=== PATIENT | male | born 1955 | race Caucasian/White ===

== ENCOUNTER 2018-06-23 13:30 | Emergency (ER) | payer OTHER ==
[2018-06-23] MEDS ORDERED: Proparacaine 0.5% Ophth Soln 15 ML Bottle EYEBOTH ONE (13:57)
--- NOTE | 2018-06-23 14:21 | EDM.PDOC ---
ED HPI GENERAL MEDICAL PROBLEM - General Chief Complaint: Eye Problems Stated Complaint: OBJECT IN LT EYE Time Seen by Provider: 06/23/18 14:08 Source of Information: Reports: Patient History Limitations: Reports: No Limitations - History of Present Illness INITIAL COMMENTS - FREE TEXT/NARRATIVE: HISTORY AND PHYSICAL: History of present illness: Patient is a 62-year-old male here with complaint of something in his eye. He states he was leaf blowing yesterday and felt something get in his eye. He flushed his eye and used some drops but still feels like there is something in it. He states it is painful but denies any visual disturbances, fevers, chills, headache, chest pain, shortness of breath. Review of systems: As per history of present illness and below otherwise all systems reviewed and negative. Past medical history: As per history of present illness and as reviewed below otherwise noncontributory. Surgical history: As per history of present illness and as reviewed below otherwise noncontributory. Social history: No reported history of drug or alcohol abuse. Family history: As per history of present illness and as reviewed below otherwise noncontributory. Physical exam: General: Patient sitting comfortably in no acute distress and nontoxic appearing HEENT: There is a tiny rust ring to the cornea on the left eye on the lateral aspect of the iris. Atraumatic, normocephalic, pupils reactive, negative for conjunctival pallor or scleral icterus, mucous membranes moist, throat clear, neck supple, nontender, trachea midline. No meningeal signs. Lungs: Clear to auscultation, breath sounds equal bilaterally, chest nontender. Heart: S1S2, regular, negative for clicks, rubs, or overt murmur. Abdomen: Soft, nondistended, nontender. Negative for masses or hepatosplenomegaly. Negative for costovertebral tenderness. Pelvis: Stable nontender. Genitourinary: Deferred. Rectal: Deferred. Extremities: Atraumatic, negative for cords or calf pain. Neurovascular unremarkable. Neuro: Awake, alert, oriented. Cranial nerves II through XII unremarkable. Cerebellum unremarkable. Motor and sensory unremarkable throughout. Exam nonfocal. Notes: Dr. Vaca performed slit lamp on patient. Diagnostics: Slit lamp exam Therapeutics: Proparocaine ophthalmic Prescriptions: Poly-trim Impression: Corneal foreign body Plan: 1. Use drops as directed 2. Follow up with ophthalmology 3. Return to ED as needed as discussed Definitive disposition and diagnosis as appropriate pending reevaluation and review of above. Left Eye Pain Score (Numeric/FACES): 3 - Related Data Allergies Allergy/AdvReac Type Severity Reaction Status Date / Time No Known Allergies Allergy Verified 06/23/18 13:55 Home Meds: Home Meds Polymyxin B/Trimethoprim [PolyTrim Ophth Soln] 1 drop OP Q3H #1 bottle 06/23/18 [Rx] Past Medical History HEENT History: Reports: None Respiratory History: Reports: None Gastrointestinal History: Reports: None Genitourinary History: Reports: None Musculoskeletal History: Reports: None Neurological History: Reports: None Psychiatric History: Reports: None Endocrine/Metabolic History: Reports: None Dermatologic History: Reports: None - Infectious Disease History Infectious Disease History: Reports: None - Past Surgical History Cardiovascular Surgical History: Reports: Other (See Below) Other Cardiovascular Surgeries/Procedures: Patient states he had "open heart surgery" in April of 2018. Social & Family History - Family History Family Medical History: Noncontributory - Tobacco Use Smoking Status *Q: Never Smoker - Caffeine Use Caffeine Use: Reports: Coffee - Recreational Drug Use Recreational Drug Use: No ED ROS GENERAL - Review of Systems Review Of Systems: ROS reveals no pertinent complaints other than HPI. ED EXAM GENERAL W FULL EYE - Physical Exam Exam: See Below (see dictation) Course - Vital Signs Last Recorded V/S: Last Vital Signs Temp 36.6 C 06/23/18 13:52 Pulse 80 06/23/18 13:52 Resp 16 06/23/18 13:52 BP 147/90 H 06/23/18 13:52 Pulse Ox 95 06/23/18 13:52 - Orders/Labs/Meds Meds: Medications Discontinued Medications Generic Name Dose Route Start Last Admin Trade Name Freq PRN Reason Stop Dose Admin Proparacaine HCl 1 ml 06/23/18 13:57 Proparacaine 0.5% Ophth Soln EYEBOTH 06/23/18 13:58 ONETIME ONE Departure - Departure Time of Disposition: 14:21 Disposition: Admitted As Inpatient 66 Condition: Good Clinical Impression: Corneal foreign body - Discharge Information Prescriptions: Polymyxin B/Trimethoprim [PolyTrim Ophth Soln] 1 drop OP Q3H #1 bottle Referrals: Corey Villeda MD [Primary Care Provider] - Additional Instructions: The following information is given to patients seen in the emergency department who are being discharged to home. This information is to outline your options for follow-up care. We provide all patients seen in our emergency department with a follow-up referral. The need for follow-up, as well as the timing and circumstances, are variable depending upon the specifics of your emergency department visit. If you don't have a primary care physician on staff, we will provide you with a referral. We always advise you to contact your personal physician following an emergency department visit to inform them of the circumstance of the visit and for follow-up with them and/or the need for any referrals to a consulting specialist. The emergency department will also refer you to a specialist when appropriate. This referral assures that you have the opportunity for follow-up care with a specialist. All of these measure are taken in an effort to provide you with optimal care, which includes your follow-up. Under all circumstances we always encourage you to contact your private physician who remains a resource for coordinating your care. When calling for follow-up care, please make the office aware that this follow-up is from your recent emergency room visit. If for any reason you are refused follow-up, please contact the [facility] Emergency Department at and asked to speak to the emergency department charge nurse. [facility] [address] [place] [address] 1. Use drops as directed 2. Follow up with ophthalmology 3. Return to ED as needed as discussed
== END 2018-06-23 14:45 | disposition home or self-care (01) ==
LOC: MW.ED 13:30
DX: T15.02XA Foreign body in cornea, left eye, initial encounter (principal)
CPT/HCPCS: 99283

== ENCOUNTER 2019-06-13 16:00 | Emergency (ER) | payer OTHER ==
[2019-06-13] MEDS ORDERED: Ketorolac 60 MG/2 ML SDV IM ONE (16:16)
--- NOTE | 2019-06-13 16:17 | EDM.PDOC ---
ED HPI GENERAL MEDICAL PROBLEM - General Chief Complaint: Neck Problem Stated Complaint: NECK AND RIGHT SHOULDER PAIN Time Seen by Provider: 06/13/19 16:01 Source of Information: Reports: Patient History Limitations: Reports: No Limitations - History of Present Illness INITIAL COMMENTS - FREE TEXT/NARRATIVE: HISTORY AND PHYSICAL: History of present illness: Patient is a 63-year-old male who presents to the emergency room today with complaints of neck muscular pain that radiates down into the right shoulder. States approximately 2-3 weeks ago he was waiting to attend a volleyball game and was "taking a nap" in his truck. He had been slouched over onto the center console. When he got out of his truck he had noticed some neck stiffness. Over the past few weeks he has had increased stiffness when turning his head side to side. Pain is to the right lateral neck and goes down the sternocleidal mastoid into the posterior shoulder. He has no injury, trauma or falls associated with this. Denies any headache, change in vision, dizziness. Denies any bony tenderness or difficulty with range of motion. Patient does have a history of chronic back pain and did see a provider in [place]. He did mention that he had this muscular neck pain to that provider who has prescribed him outpatient physical therapy. He is supposed to start dry needling and physical therapy next week. Currently not taking any over-the- counter medications. Review of systems: As per history of present illness and below otherwise all systems reviewed and negative. Past medical history: As per history of present illness and as reviewed below otherwise noncontributory. Surgical history: As per history of present illness and as reviewed below otherwise noncontributory. Social history: See social history for further information Family history: As per history of present illness and as reviewed below otherwise noncontributory. Physical exam: General: Well-developed and well-nourished 63-year-old male. Alert and oriented. Nontoxic appearing and in no acute distress. Vital signs are stable and have been reviewed by me. HEENT: Atraumatic, normocephalic, pupils equal and reactive bilaterally, negative for conjunctival pallor or scleral icterus, mucous membranes moist, TMs normal bilaterally, throat clear, neck supple, nontender, trachea midline. No drooling or trismus noted. No meningeal signs. No hot potato voice noted. Lungs: Clear to auscultation, breath sounds equal bilaterally, chest nontender. Heart: S1S2, regular rate and rhythm without overt murmur Abdomen: Soft, nondistended, nontender. Negative for masses or hepatosplenomegaly. Negative for costovertebral tenderness. Pelvis: Stable nontender. C-spine/Back: No pinpoint vertebral tenderness upon palpation. No crepitus, step -offs or obvious deformities. Patient is ambulatory into the emergency room without difficulty or deficit. Able to rock back on heels and walk on toes. Denies any urinary or fecal incontinence. Denies any numbness, tingling or saddle paresthesia. Patient does have muscular tenderness to the right lateral neck going into the trapezius muscle. Limited range of motion when turning his head chin to shoulder bilaterally. Some muscular pulling sensation on the right when chin to chest and straight up in the air. Skin: Intact, warm, dry. No lesions or rashes noted. Extremities: Atraumatic, moves all extremities per self without difficulty or deficits, negative for cords or calf pain. Neurovascular unremarkable. Neuro: Awake, alert, oriented. Cranial nerves II through XII unremarkable. Cerebellum unremarkable. Motor and sensory unremarkable throughout. Exam nonfocal. Notes: We discussed doing an x-ray. Patient has no injury associated with this pain and he does not have any neurological problems. The physical exam shows sits muscular in nature. Medication education was reviewed. He states he does have physical therapy next week and does plan on seeing the provider in [place] for follow-up. Supportive care measures were reviewed and discussed. Voices understanding and is agreeable to plan of care. Denies any further questions or concerns at this time. Diagnostics: Declines Therapeutics: Norflex Toradol Prescription: Flexeril Diclofenac Medrol Dosepak Impression: Muscular Neck Pain Plan: 1. When resting please lay on a flat firm surface. Limit your immobility to prevent muscle stiffness. Get up to ambulate/move around/gentle stretching multiple times throughout the day. May alternate heat and ice to the painful areas 2. Tylenol as needed for back pain. Otherwise take the prescribed Flexeril and diclofenac as directed. Diclofenac is an anti-inflammatory so do not take any additional NSAIDs with this medication, such as ibuprofen or Aleve. Flexeril as a muscle relaxant, this medication may cause drowsiness a do not take it will driving her needing to be functioning outside of the house. 3. Please follow-up with your primary care provider as we discussed. Return to the ED as needed and as discussed. Definitive disposition and diagnosis as appropriate pending reevaluation and review of above. Right Neck Pain Score (Numeric/FACES): 8 - Related Data Allergies Allergy/AdvReac Type Severity Reaction Status Date / Time No Known Allergies Allergy Verified 06/13/19 16:05 Home Meds: Home Meds Cyclobenzaprine [Flexeril] 10 mg PO TID PRN #21 tab 06/13/19 [Rx] Diclofenac Sodium [Voltaren] 75 mg PO BIDMEALS PRN #30 tab.cr 06/13/19 [Rx] methylPREDNISolone [Medrol] 1 dose PO DAILY 6 Days #1 dospk 06/13/19 [Rx] Past Medical History HEENT History: Reports: None Respiratory History: Reports: None Gastrointestinal History: Reports: None Genitourinary History: Reports: None Musculoskeletal History: Reports: None Neurological History: Reports: None Psychiatric History: Reports: None Endocrine/Metabolic History: Reports: None Dermatologic History: Reports: None - Infectious Disease History Infectious Disease History: Reports: Chicken Pox, Measles, Mumps - Past Surgical History Cardiovascular Surgical History: Reports: Other (See Below) Other Cardiovascular Surgeries/Procedures: Patient states he had "open heart surgery" in April of 2018. Social & Family History - Family History Family Medical History: Noncontributory - Tobacco Use Smoking Status *Q: Former Smoker Years of Tobacco use: 40 Packs/Tins Daily: 1 Used Tobacco, but Quit: Yes Month/Year Tobacco Last Used: 2 yr - Caffeine Use Caffeine Use: Reports: Coffee - Recreational Drug Use Recreational Drug Use: No ED ROS GENERAL - Review of Systems Review Of Systems: ROS reveals no pertinent complaints other than HPI. ED EXAM, UPPER BACK/NECK PAIN - Physical Exam Exam: See Below (See dictation) Course - Vital Signs Last Recorded V/S: Last Vital Signs Temp 97.2 F 06/13/19 16:06 Pulse 55 L 06/13/19 16:06 Resp 16 06/13/19 16:06 BP 156/77 H 06/13/19 16:06 Pulse Ox 93 L 06/13/19 16:06 - Orders/Labs/Meds Meds: Medications Discontinued Medications Generic Name Dose Route Start Last Admin Trade Name Freq PRN Reason Stop Dose Admin Ketorolac Tromethamine 60 mg 06/13/19 16:16 Toradol IM 06/13/19 16:17 ONETIME ONE Orphenadrine Citrate 60 mg 06/13/19 16:17 06/13/19 16:42 Norflex IM 06/13/19 16:18 60 mg NOW STA Administration Departure - Departure Time of Disposition: 16:18 Disposition: Home, Self-Care 01 Clinical Impression: Neck muscle strain Qualifiers: Encounter type: initial encounter Qualified Code(s): S16.1XXA - Strain of muscle, fascia and tendon at neck level, initial encounter - Discharge Information Prescriptions: Cyclobenzaprine [Flexeril] 10 mg PO TID PRN #21 tab PRN Reason: Muscle Spasm Diclofenac Sodium [Voltaren] 75 mg PO BIDMEALS PRN #30 tab.cr PRN Reason: Pain methylPREDNISolone [Medrol] 1 dose PO DAILY 6 Days #1 dospk Instructions: Muscle Cramps and Spasms, [id number] Referrals: Corey Villeda MD [Primary Care Provider] - Forms: ED Department Discharge Additional Instructions: The following information is given to patients seen in the emergency department who are being discharged to home. This information is to outline your options for follow-up care. We provide all patients seen in our emergency department with a follow-up referral. The need for follow-up, as well as the timing and circumstances, are variable depending upon the specifics of your emergency department visit. If you don't have a primary care physician on staff, we will provide you with a referral. We always advise you to contact your personal physician following an emergency department visit to inform them of the circumstance of the visit and for follow-up with them and/or the need for any referrals to a consulting specialist. The emergency department will also refer you to a specialist when appropriate. This referral assures that you have the opportunity for follow-up care with a specialist. All of these measure are taken in an effort to provide you with optimal care, which includes your follow-up. Under all circumstances we always encourage you to contact your private physician who remains a resource for coordinating your care. When calling for follow-up care, please make the office aware that this follow-up is from your recent emergency room visit. If for any reason you are refused follow-up, please contact the Emergency Department at and asked to speak to the emergency department charge nurse. Primary Care [address], [place] [address] [facility] [address] [place] [id number] 1. Gentle stretching multiple times throughout the day. Apply gentle heat to the space. 2. Tylenol as needed for back pain. Otherwise take the prescribed Flexeril and diclofenac as directed. Diclofenac is an anti-inflammatory so do not take any additional NSAIDs with this medication, such as ibuprofen or Aleve. Flexeril as a muscle relaxant, this medication may cause drowsiness a do not take it will driving her needing to be functioning outside of the house. 3. Please follow-up with your primary care provider as we discussed. Return to the ED as needed and as discussed.
== END 2019-06-13 17:23 | disposition home or self-care (01) ==
LOC: MW.ED 16:00
DX: S16.1XXA Strain of muscle, fascia and tendon at neck level, initial encounter (principal); Z87.891 Personal history of nicotine dependence; X50.9XXA Other and unspecified overexertion or strenuous movements or postures, initial encounter; Y93.84 Activity, sleeping
CPT/HCPCS: 96372; 99283; J1885; J2360

== ENCOUNTER 2019-12-08 15:18 | Emergency (ER) | payer OTHER ==
[2019-12-08] MEDS ORDERED: Bupivacaine 0.5% 10 ML SDV INJECT ONE (15:45)
--- NOTE | 2019-12-08 15:50 | EDM.PDOC ---
ED HPI GENERAL MEDICAL PROBLEM - General Chief Complaint: Laceration Stated Complaint: CUT TO FINGER Time Seen by Provider: 12/08/19 15:25 Source of Information: Reports: Patient History Limitations: Reports: No Limitations - History of Present Illness INITIAL COMMENTS - FREE TEXT/NARRATIVE: HISTORY AND PHYSICAL: History of present illness: Patient is a 64-year-old male who presents to the ED today with concern of laceration to his left hand ring finger that occurred just prior to arrival to the ED. Patient states he is up-to-date on his tetanus vaccine. Patient states he was trying to open a box with a knife when it slipped and cut his finger. Patient states he wrapped it up and came immediately to the ED. Patient denies fever, chills, chest pain, shortness of breath, or cough. Denies headache, neck stiff ness, change in vision, syncope, or near syncope. Denies nausea, vomiting, abdominal pain, diarrhea, constipation, or dysuria. Has not noted any blood in urine or stool. Patient has been eating and drinking appropriately. Review of systems: As per history of present illness and below otherwise all systems reviewed and negative. Past medical history: As per history of present illness and as reviewed below otherwise noncontributory. Surgical history: As per history of present illness and as reviewed below otherwise noncontributory. Social history: See social history for further information Family history: As per history of present illness and as reviewed below otherwise noncontributory. Physical exam: General: Patient is alert, oriented, and in no acute distress. Patient sitting comfortably on exam table. HEENT: Atraumatic, normocephalic, pupils equal and reactive bilaterally, negative for conjunctival pallor or scleral icterus, mucous membranes moist, TMs normal bilaterally, throat clear, neck supple, nontender, trachea midline. No drooling or trismus noted. No meningeal signs. No hot potato voice noted. Lungs: Clear to auscultation, breath sounds equal bilaterally, chest nontender. Heart: S1S2, regular rate and rhythm without overt murmur Abdomen: Soft, nondistended, nontender. Negative for masses or hepatosplenomegaly. Negative for costovertebral tenderness. Pelvis: Stable nontender. Genitourinary: Deferred. Rectal: Deferred. Skin: The extremities. Otherwise, intact, warm, dry. No lesions or rashes noted. Extremities: There is a 2cm subcutaneous laceration over the distal fourth digit of the left hand with mild bleeding. Otherwise, atraumatic, negative for cords or calf pain. Neurovascular unremarkable. Neuro: Awake, alert, oriented. Cranial nerves II through XII unremarkable. Cerebellum unremarkable. Motor and sensory unremarkable throughout. Exam nonfocal. Notes: Discussed importance for follow-up with primary care provider. Voices understanding and is agreeable to plan of care. Denies any further questions or concerns at this time. Diagnostics: XR of digit offered but patient declines Therapeutics: Sutures, lidocaine, bupivacaine, sterile dressing placed by nursing staff Prescription: None Impression: Finger laceration, 4th digit, left Plan: 1. Keep the area clean and dry. Continue to monitor for signs of infection as discussed. Sutures to be removed in 7-10 days. 2. Tylenol and/or ibuprofen as directed and as needed for pain management and discomfort. 3. Please follow-up with your primary care provider as discussed. Return to the ED as needed and as discussed. Definitive disposition and diagnosis as appropriate pending reevaluation and review of above. - Related Data Allergies Allergy/AdvReac Type Severity Reaction Status Date / Time No Known Allergies Allergy Verified 12/08/19 15:27 Home Meds: Home Meds Gemfibrozil [Lopid] 600 mg PO DAILY 12/08/19 [History] Metoprolol Tartrate 25 mg PO DAILY 12/08/19 [History] atorvaSTATin [Lipitor] 80 mg PO DAILY 12/08/19 [History] Past Medical History HEENT History: Reports: None Respiratory History: Reports: None Gastrointestinal History: Reports: None Genitourinary History: Reports: None Musculoskeletal History: Reports: None Neurological History: Reports: None Psychiatric History: Reports: None Endocrine/Metabolic History: Reports: None Dermatologic History: Reports: None - Infectious Disease History Infectious Disease History: Reports: Measles - Past Surgical History Cardiovascular Surgical History: Reports: Other (See Below) Other Cardiovascular Surgeries/Procedures: Patient states he had "open heart surgery" in April of 2018. GI Surgical History: Reports: Cholecystectomy Musculoskeletal Surgical History: Reports: Shoulder Surgery Social & Family History - Family History Family Medical History: Noncontributory - Tobacco Use Smoking Status *Q: Former Smoker Used Tobacco, but Quit: Yes Month/Year Tobacco Last Used: 2017 - Caffeine Use Caffeine Use: Reports: Coffee - Recreational Drug Use Recreational Drug Use: No ED ROS GENERAL - Review of Systems Review Of Systems: Comprehensive ROS is negative, except as noted in HPI. ED EXAM, SKIN/RASH Exam: See Below (see dictation) ED SKIN PROCEDURES - Laceration/Wound Repair Left Distal Digit - 4th (Ring) Appearance: Subcutaneous, Linear, Mildly Contaminated Distal NVT: Neuro & Vascular Intact, No Tendon Injury Anesthetic Type: Digital Local Anesthesia - Lidocaine (Xylocaine): 1% Plain Local Anesthesia - Bupivicaine (Marcaine): 0.5% Plain Local Anesthetic Volume: Other (10cc) Skin Prep: Chlorhexidine (Hibiciens), Providone-Iodine (Betadine), Saline Saline Irrigation (cc's): 100 Exploration/Debridement/Repair: Wound Explored, In a Bloodless Field, Explored to Base, No Foreign Material Found Closed with: Sutures Lac/Wound length In cm: 2 Suture Size: 4-0 # of Sutures: 4 Suture Type: Silk, Interrupted Drain Placement: No Sterile Dressing Applied: Nurse Tetanus Status Addressed: Yes (up to date) Complications: No Course - Vital Signs Last Recorded V/S: Last Vital Signs Temp 97.0 F 12/08/19 15:30 Pulse 62 12/08/19 15:30 Resp 18 12/08/19 15:30 BP 169/99 H 12/08/19 15:30 Pulse Ox 94 L 12/08/19 15:30 - Orders/Labs/Meds Meds: Medications Discontinued Medications Generic Name Dose Route Start Last Admin Trade Name Leonardo PRN Reason Stop Dose Admin Bupivacaine HCl 10 ml 12/08/19 15:45 Sensorcaine-Mpf 0.5% INJECT 12/08/19 15:46 ONETIME ONE Lidocaine HCl 5 ml 12/08/19 15:45 Xylocaine-Mpf 1% INJECT 12/08/19 15:46 ONETIME ONE Departure - Departure Time of Disposition: 16:25 Disposition: Home, Self-Care 01 Clinical Impression: Finger laceration Qualifiers: Encounter type: initial encounter Finger: ring finger Damage to nail status: without damage Foreign body presence: without foreign body Laterality: left Qualified Code(s): S61.215A - Laceration without foreign body of left ring finger without damage to nail, initial encounter - Discharge Information Referrals: Corey Villeda MD [Primary Care Provider] - Forms: ED Department Discharge Additional Instructions: The following information is given to patients seen in the emergency department who are being discharged to home. This information is to outline your options for follow-up care. We provide all patients seen in our emergency department with a follow-up referral. The need for follow-up, as well as the timing and circumstances, are variable depending upon the specifics of your emergency department visit. If you don't have a primary care physician on staff, we will provide you with a referral. We always advise you to contact your personal physician following an emergency department visit to inform them of the circumstance of the visit and for follow-up with them and/or the need for any referrals to a consulting specialist. The emergency department will also refer you to a specialist when appropriate. This referral assures that you have the opportunity for follow-up care with a specialist. All of these measure are taken in an effort to provide you with optimal care, which includes your follow-up. Under all circumstances we always encourage you to contact your private physician who remains a resource for coordinating your care. When calling for follow-up care, please make the office aware that this follow-up is from your recent emergency room visit. If for any reason you are refused follow-up, please contact the [facility] Emergency Department at and asked to speak to the emergency department charge nurse. [facility] [address] [place] [id number] [place] [address] 1. Keep the area clean and dry. Continue to monitor for signs of infection as discussed. Sutures to be removed in 7-10 days. 2. Tylenol and/or ibuprofen as directed and as needed for pain management and discomfort. 3. Please follow-up with your primary care provider as discussed. Return to the ED as needed and as discussed. Sepsis Event Note - Evaluation Sepsis Screening Result: No Definite Risk - Focused Exam Vital Signs: Vital Signs Temp Pulse Resp BP Pulse Ox 12/08/19 15:30 97.0 F 62 18 169/99 H 94 L Date Exam was Performed: 12/08/19 Time Exam was Performed: 16:25
== END 2019-12-08 16:38 | disposition home or self-care (01) ==
LOC: MW.ED 15:18
DX: S61.215A Laceration without foreign body of left ring finger without damage to nail, initial encounter (principal); Z87.891 Personal history of nicotine dependence; Z79.899 Other long term (current) drug therapy; W26.0XXA Contact with knife, initial encounter
CPT/HCPCS: 12001; 99282; J2001; J3490

== ENCOUNTER 2020-06-12 16:31 | Emergency (ER) | payer OTHER ==
[2020-06-12] MEDS ORDERED: Lidocaine 1% PF 2 ML SDV INJECT ONE (18:25)
--- NOTE | 2020-06-12 18:25 | EDM.PDOC ---
ED HPI GENERAL MEDICAL PROBLEM - General Chief Complaint: Laceration Stated Complaint: RT HAND LACERATION Time Seen by Provider: 06/12/20 18:24 Source of Information: Reports: Patient History Limitations: Reports: No Limitations - History of Present Illness INITIAL COMMENTS - FREE TEXT/NARRATIVE: HISTORY AND PHYSICAL: History of present illness: Patient is a 64-year-old male who presents to the emergency room with complaints of a laceration to the right index finger. He states he was working on a roof top of his shop when he started to fall and grabbed onto some supplies resulting in the laceration. He did not fall, hit his head or have any loss of consciousness. He denies any other bodily injury. He offers no systemic complaints. Tetanus is up-to-date. Review of systems: As per history of present illness and below otherwise all systems reviewed and negative. Past medical history: As per history of present illness and as reviewed below otherwise noncontribu tory. Surgical history: As per history of present illness and as reviewed below otherwise noncontributory. Social history: See social history for further information Family history: As per history of present illness and as reviewed below otherwise noncontributory. Physical exam: General: Well developed and well nourished. Alert and orientated x 3. Nontoxic in appearance and in no acute distress. Vital signs are stable and have been reviewed by me. Nursing notes were reviewed. HEENT: Atraumatic, normocephalic, pupils equal and reactive bilaterally, negative for conjunctival pallor or scleral icterus, mucous membranes moist, trachea midline. No drooling or trismus noted. No meningeal signs. No hot potato voice noted. Lungs: Clear to auscultation, breath sounds equal bilaterally, chest nontender. Normal work of breathing, no accessory muscles used. Heart: S1S2, regular rate and rhythm without overt murmur Abdomen: Soft, nondistended, nontender. Skin: 2.5 cm laceration to the right index finger mid palmar surface. Otherwise remaining skin is intact, warm, dry. No lesions or rashes noted. Hematologic: No petechiae or purpra. Mucosa appropriate color and normal nail bed color and refill. Extremities: Moves all extremities per self without difficulty or deficits, good flexion and extension of the fingers. Cap refill less than 3 seconds. Neurovascular unremarkable. Neuro: Awake, alert, oriented. Cranial nerves II through XII unremarkable. Cerebellum unremarkable. Motor and sensory unremarkable throughout. Exam nonfocal. Psychiatric: Mood and affect are appropriate. Normal thought process. Answering questions appropriately. Notes: 1% lidocaine was used to anesthetize the area. Usual and customary procedures were followed for suture placement. #5 interrupted sutures were placed. Bacitracin nonstick dressing was applied. Patient tolerated well. I have spoken with the patient/caregiver and discussed today's findings, in addition to providing specific details for plan of care. The patient is stable for discharge, counseling was provided and we discussed in great detail signs and symptoms that would prompt them to return to the Emergency Department. Medicatio n, follow up and supportive care measures were reviewed and discussed. Voices understanding and is agreeable to plan of care. Denies any further questions or concerns at this time. Diagnostics: None Therapeutics: 1% lidocaine, wound care Prescription: None Impression: Laceration Plan: 1. Keep the area clean and dry. Continue to monitor for signs of infection. Sutures to be removed in 7-10 days. 2. Tylenol and/or ibuprofen as needed for pain management. 3. Please follow-up with your primary care provider in the next 1-2 days. Return to the ED as needed and as discussed. Definitive disposition and diagnosis as appropriate pending reevaluation and review of above. r index finger Pain Score (Numeric/FACES): 1 - Related Data Allergies Allergy/AdvReac Type Severity Reaction Status Date / Time No Known Allergies Allergy Verified 06/12/20 17:49 Home Meds: Home Meds . [Unable to Verify Home Med List] 06/12/20 [History] Past Medical History HEENT History: Reports: None Respiratory History: Reports: None Gastrointestinal History: Reports: None Genitourinary History: Reports: None Musculoskeletal History: Reports: None Neurological History: Reports: None Psychiatric History: Reports: None Endocrine/Metabolic History: Reports: None Dermatologic History: Reports: None - Infectious Disease History Infectious Disease History: Reports: Measles - Past Surgical History Cardiovascular Surgical History: Reports: Other (See Below) Other Cardiovascular Surgeries/Procedures: Patient states he had "open heart surgery" in April of 2018. GI Surgical History: Reports: Cholecystectomy Musculoskeletal Surgical History: Reports: Shoulder Surgery Social & Family History - Family History Family Medical History: Noncontributory - Caffeine Use Caffeine Use: Reports: Coffee ED ROS GENERAL - Review of Systems Review Of Systems: Comprehensive ROS is negative, except as noted in HPI. ED EXAM, SKIN/RASH Exam: See Below (See dictation) Course - Vital Signs Last Recorded V/S: Last Vital Signs Temp 97.3 F 06/12/20 17:43 Pulse 78 06/12/20 17:43 Resp 18 06/12/20 17:43 BP 148/82 H 06/12/20 17:43 Pulse Ox 93 L 06/12/20 17:43 - Orders/Labs/Meds Meds: Medications Discontinued Medications Generic Name Dose Route Start Last Admin Trade Name Leonardo PRN Reason Stop Dose Admin Bacitracin Confirm 06/12/20 18:53 06/12/20 19:01 Bacitracin Oint 1 Gm Administered 06/12/20 18:54 1 dose Dose Administration 1 dose .ROUTE .STK-MED ONE Lidocaine HCl Confirm 06/12/20 18:26 Xylocaine-Mpf 1% Administered 06/12/20 18:27 Dose 2 mls @ as directed .ROUTE .STK-MED ONE Lidocaine HCl 2 ml 06/12/20 18:25 06/12/20 19:01 Xylocaine-Mpf 1% INJECT 06/12/20 18:26 2 ml ONETIME ONE Administration Departure - Departure Time of Disposition: 19:57 Disposition: Home, Self-Care 01 Clinical Impression: Laceration - Discharge Information Instructions: Laceration Care, Adult, [id number] Referrals: Corey Villeda MD [Primary Care Provider] - Forms: ED Department Discharge Additional Instructions: The following information is given to patients seen in the emergency department who are being discharged to home. This information is to outline your options for follow-up care. We provide all patients seen in our emergency department with a follow-up referral. The need for follow-up, as well as the timing and circumstances, are variable depending upon the specifics of your emergency department visit. If you don't have a primary care physician on staff, we will provide you with a referral. We always advise you to contact your personal physician following an emergency department visit to inform them of the circumstance of the visit and for follow-up with them and/or the need for any referrals to a consulting specialist. The emergency department will also refer you to a specialist when appropriate. This referral assures that you have the opportunity for follow-up care with a specialist. All of these measure are taken in an effort to provide you with optimal care, which includes your follow-up. Under all circumstances we always encourage you to contact your private physician who remains a resource for coordinating your care. When calling for follow-up care, please make the office aware that this follow-up is from your recent emergency room visit. If for any reason you are refused follow-up, please contact the [facility] Emergency Department at and asked to speak to the emergency department charge nurse. [facility] [address] [place] [id number] [facility] [address] [place] [id number] Thank you for choosing the [facility] emergency department in [place] for your medical needs today. It was a pleasure caring for you. Today you were seen in the emergency department for laceration 1. Keep the area clean and dry. Continue to monitor for signs of infection. Edwards tures to be removed in 7-10 days. 2. Tylenol and/or ibuprofen as needed for pain management. 3. Please follow-up with your primary care provider in the next 1-2 days. Return to the ED as needed and as discussed. Sepsis Event Note (ED) - Evaluation Sepsis Screening Result: No Definite Risk - Focused Exam Vital Signs: Vital Signs Temp Pulse Resp BP Pulse Ox 06/12/20 17:43 97.3 F 78 18 148/82 H 93 L
[2020-06-12] MEDS ORDERED: Lidocaine 1% 2 ML ONE (18:26)
[2020-06-12] MEDS ORDERED: Bacitracin Oint 1 GM U/D Packet ONE (18:53)
== END 2020-06-12 19:08 | disposition home or self-care (01) ==
LOC: MW.ED 16:31
DX: S61.210A Laceration without foreign body of right index finger without damage to nail, initial encounter (principal); W26.8XXA Contact with other sharp object(s), not elsewhere classified, initial encounter
CPT/HCPCS: 12001; 99282; J2001

== ENCOUNTER 2020-10-08 10:20 | Emergency (ER) | payer OTHER, MEDICARE ==
--- NOTE | 2020-10-08 10:22 | EDM.PDOC ---
ED HPI GENERAL MEDICAL PROBLEM - General Stated Complaint: CUT HAND Time Seen by Provider: 10/08/20 10:21 Source of Information: Reports: Patient History Limitations: Reports: No Limitations - History of Present Illness INITIAL COMMENTS - FREE TEXT/NARRATIVE: HISTORY AND PHYSICAL: History of present illness: Patient is a 65-year-old male who presents to the ED today with concern of right hand laceration that occurred yesterday when he was using a grinder watch parts and caught his hand on the blade. Patient states that he did not plan on coming to the emergency room but his saw the laceration and was concerned so told him to come be evaluated. Patient states that there is a skin piece that was hanging that he had cut off and since then he has had issues with the laceration bleeding since removing the flap. Patient states he is up-to-date on his tetanus vaccine as he had this 3 years ago. Patient denies fever, chills, chest pain, shortness of breath, or cough. Denies headache, neck stiff ness, change in vision, syncope, or near syncope. Denies nausea, vomiting, abdominal pain, diarrhea, constipation, or dysuria. Has not noted any blood in urine or stool. Patient has been eating and drinking appropriately. Review of systems: As per history of present illness and below otherwise all systems reviewed and negative. Past medical history: As per history of present illness and as reviewed below otherwise noncontributory. Surgical history: As per history of present illness and as reviewed below otherwise noncontributory. Social history: See social history for further information Family history: As per history of present illness and as reviewed below otherwise noncontributory. Physical exam: General: Patient is alert, oriented, and in no acute distress. Patient sitting comfortably on exam table. HEENT: Atraumatic, normocephalic, pupils equal and reactive bilaterally, negative for conjunctival pallor or scleral icterus, mucous membranes moist, TMs normal bilaterally, throat clear, neck supple, nontender, trachea midline. No drooling or trismus noted. No meningeal signs. No hot potato voice noted. Lungs: Clear to auscultation, breath sounds equal bilaterally, chest nontender. Heart: S1S2, regular rate and rhythm without overt murmur Abdomen: Soft, nondistended, nontender. Negative for masses or hepatosplenomegaly. Negative for costovertebral tenderness. Pelvis: Stable nontender. Genitourinary: Deferred. Rectal: Deferred. Skin: Intact, warm, dry. No lesions or rashes noted. Extremities: There is a 3cm superficial abrasion of the right dorsum hand with a 0.5cm x 3cm area of missing epidermis of the webspace between the first and second digit with mild trickling of bleeding. Patient does have full range of motion of the digits of the right upper extremity and wrist without deficit. Radial pulses grossly intact of the right upper extremity with capillary refill less than 2 seconds. Otherwise, atraumatic, negative for cords or calf pain. Neurovascular unremarkable. Neuro: Awake, alert, oriented. Cranial nerves II through XII unremarkable. Cerebellum unremarkable. Motor and sensory unremarkable throughout. Exam nonfocal. Notes: Patients O2 on exam is 92%. I compared this to past visits and patient consistently has an O2 documented in this range. Signs and symptoms that would prompt return to the ED thoroughly discussed with patient. Discussed importance for follow-up with a primary care provider. Voices understanding and is agreeable to plan of care. Denies any further questions or concerns at this time. Diagnostics: None Therapeutics: SurgiSeal sterile dressing Prescription: None Impression: Right hand abrasion Plan: 1. Keep the area clean and dry. Continue to monitor for signs of infection as discussed. 2. Tylenol and/or ibuprofen as directed and as needed for pain management and discomfort. 3. Please follow-up with your primary care provider as discussed. Return to the ED as needed and as discussed. Definitive disposition and diagnosis as appropriate pending reevaluation and review of above. - Related Data Allergies Allergy/AdvReac Type Severity Reaction Status Date / Time No Known Allergies Allergy Verified 10/08/20 10:42 Home Meds: Home Meds . [Unable to Verify Home Med List] 06/12/20 [History] Past Medical History HEENT History: Reports: None Respiratory History: Reports: None Gastrointestinal History: Reports: None Genitourinary History: Reports: None Musculoskeletal History: Reports: None Neurological History: Reports: None Psychiatric History: Reports: None Endocrine/Metabolic History: Reports: None Dermatologic History: Reports: None - Infectious Disease History Infectious Disease History: Reports: Measles - Past Surgical History Cardiovascular Surgical History: Reports: Other (See Below) Other Cardiovascular Surgeries/Procedures: Patient states he had "open heart surgery" in April of 2018. GI Surgical History: Reports: Cholecystectomy Musculoskeletal Surgical History: Reports: Shoulder Surgery Social & Family History - Family History Family Medical History: No Pertinent Family History - Caffeine Use Caffeine Use: Reports: Coffee ED ROS GENERAL - Review of Systems Review Of Systems: Comprehensive ROS is negative, except as noted in HPI. ED EXAM, GENERAL - Physical Exam Exam: See Below (see dictation) Course - Vital Signs Last Recorded V/S: Last Vital Signs Temp 97.1 F 10/08/20 10:39 Pulse 62 10/08/20 12:01 Resp 16 10/08/20 10:39 BP 126/83 10/08/20 12:01 Pulse Ox 92 L 10/08/20 12:01 Departure - Departure Time of Disposition: 14:04 Disposition: Home, Self-Care 01 Clinical Impression: Hand abrasion Qualifiers: Encounter type: initial encounter Laterality: right Qualified Code(s): S60.511A - Abrasion of right hand, initial encounter - Discharge Information Instructions: Skin Tear, [id number], Abrasion, [id number] Referrals: Corey Villeda MD [Primary Care Provider] - Forms: ED Department Discharge Additional Instructions: The following information is given to patients seen in the emergency department who are being discharged to home. This information is to outline your options for follow-up care. We provide all patients seen in our emergency department with a follow-up referral. The need for follow-up, as well as the timing and circumstances, are variable depending upon the specifics of your emergency department visit. If you don't have a primary care physician on staff, we will provide you with a referral. We always advise you to contact your personal physician following an emergency department visit to inform them of the circumstance of the visit and for follow-up with them and/or the need for any referrals to a consulting specialist. The emergency department will also refer you to a specialist when appropriate. This referral assures that you have the opportunity for follow-up care with a specialist. All of these measure are taken in an effort to provide you with optimal care, which includes your follow-up. Under all circumstances we always encourage you to contact your private physician who remains a resource for coordinating your care. When calling for follow-up care, please make the office aware that this follow-up is from your recent emergency room visit. If for any reason you are refused follow-up, please contact the [facility] Emergency Department at and asked to speak to the emergency department charge nurse. [facility] [address] [place] [address] [facility] [address] [place] [id number] 1. Keep the area clean and dry. Continue to monitor for signs of infection as discussed. 2. Tylenol and/or ibuprofen as directed and as needed for pain management and discomfort. 3. Please follow-up with your primary care provider as discussed. Return to the ED as needed and as discussed. Sepsis Event Note (ED) - Focused Exam Vital Signs: Vital Signs Temp Pulse Resp BP Pulse Ox 10/08/20 12:01 62 126/83 92 L 10/08/20 10:39 97.1 F 91 16 131/77 91 L
== END 2020-10-08 12:01 | disposition home or self-care (01) ==
LOC: MW.ED 10:20
DX: S60.511A Abrasion of right hand, initial encounter (principal); W26.8XXA Contact with other sharp object(s), not elsewhere classified, initial encounter
CPT/HCPCS: 99282

== ENCOUNTER 2021-02-22 23:35 | Emergency (ER) | payer OTHER, MEDICARE ==
[2021-02-22] MEDS ORDERED: Diphtheria,Pertussis(Acell),Tetanus Vaccine 0.5 ML Syringe IM ONE (23:51)
[2021-02-23] MEDS ORDERED: Cephalexin 500 MG Cap PO ONE (00:25)
[2021-02-23] MEDS ORDERED: Acetaminophen/oxyCODONE 325-5 MG Tab PO ONE (00:28)
--- NOTE | 2021-02-23 00:30 | EDM.PDOC ---
ED HPI GENERAL MEDICAL PROBLEM - General Chief Complaint: General Stated Complaint: HIT FINGER WITH HAMMER Time Seen by Provider: 02/22/21 23:43 - History of Present Illness INITIAL COMMENTS - FREE TEXT/NARRATIVE: History of present illness: The patient smashed his left hand with a hammer. He is right-hand dominant. He was at work on duty at the time. Saphenous afternoon he has enough pain and swelling in the index finger of the left hand that 8 he can tolerate it cannot sleep. [] Review of systems: As per history of present illness and below otherwise all systems reviewed and negative. Past medical history: As per history of present illness and as reviewed below otherwise noncontributory. Surgical history: As per history of present illness and as reviewed below otherwise noncontributory. Social history: No reported history of drug or alcohol abuse. Family history: As per history of present illness and as reviewed below otherwise noncontributory. Physical exam: Constitutional - well developed, well-nourished and in no acute distress HEENT - normocephalic, no evidence of trauma - external nose and mouth normal - no mass in neck and no JVD - mucosae moist EYES - full EOM, PERRL, no icterus - no evidence of inflammation, injection, or drainage Respiratory - no respiratory distress, equal bilateral expansion Musculoskeletal no gross deformity of long bones or joints - no tenderness, swelling or edema Neurologic - Alert and oriented times four - CN II-XII grossly intact - motor sensory and coordination symmetrically normal Psychiatric - appropriate mood and affect with normal thought content Hematologic - No petechiae or purpura - mucosa appropriate color and sclera not pale - normal nail bed color and refill Integument -patient has a subungual hematoma in the left index finger. Its quite tight and swollen with ecchymosis of the DIP distal tip. Sensation is intact in the distal tip. No rash or evidence of trauma - normal turgor Diagnostics: [] Therapeutics: [] Impression: [] Plan: [] Definitive disposition and diagnosis as appropriate pending reevaluation and review of above. Left Finger-Ring Pain Score (Numeric/FACES): 9 - Related Data Allergies Allergy/AdvReac Type Severity Reaction Status Date / Time No Known Allergies Allergy Verified 02/22/21 23:41 Home Meds: Home Meds Acetaminophen/oxyCODONE [Percocet 325-5 MG] 1 - 2 each PO Q4HR PRN #12 tab 02/23/21 [Rx] cephALEXin [Cephalexin] 500 mg PO BID #10 capsule 02/23/21 [Rx] Past Medical History HEENT History: Reports: None Respiratory History: Reports: None Gastrointestinal History: Reports: None Genitourinary History: Reports: None Musculoskeletal History: Reports: None Neurological History: Reports: None Psychiatric History: Reports: None Endocrine/Metabolic History: Reports: None Dermatologic History: Reports: None - Infectious Disease History Infectious Disease History: Reports: Measles - Past Surgical History Cardiovascular Surgical History: Reports: Other (See Below) Other Cardiovascular Surgeries/Procedures: Patient states he had "open heart surgery" in April of 2018. GI Surgical History: Reports: Cholecystectomy Musculoskeletal Surgical History: Reports: Shoulder Surgery Social & Family History - Family History Family Medical History: No Pertinent Family History - Caffeine Use Caffeine Use: Reports: Coffee - Recreational Drug Use Recreational Drug Use: No ED ROS GENERAL - Review of Systems Review Of Systems: Comprehensive ROS is negative, except as noted in HPI. ED EXAM, GENERAL - Physical Exam Exam: See Below Free Text/Narrative:: My physical exam is in the HPI Course - Vital Signs Text/Narrative:: I reviewed the literature because the possibility that I would convert this to an open fracture by doing I pain relief trephination. Literature suggests that his subungual hematoma with a fracture is an open fracture and antibiotics are controversial and not necessarily needed. Because I am doing a trephination this will open fracture to the outside air I chose to give him antibiotics here and follow-up with antibiotics as a prescription. We will also take your pain control and splinting. Last Recorded V/S: Last Vital Signs Temp 36.2 C 02/22/21 23:42 Pulse 55 L 02/22/21 23:42 Resp 17 02/22/21 23:42 BP 121/64 02/22/21 23:42 Pulse Ox 97 02/22/21 23:42 - Orders/Labs/Meds Orders: Active Orders 24 hr Category Date Time Status Vaccines to be Administered [RC] PER UNIT ROUTINE Care 02/22/21 23:51 Active Hand Comp Min 3V Lt [CR] Stat Exams 02/22/21 23:51 Taken Meds: Medications Discontinued Medications Generic Name Dose Route Start Last Admin Trade Name Freq PRN Reason Stop Dose Admin Diphtheria/Tetanus/Acell Pertussis 0.5 ml 02/22/21 23:51 02/23/21 00:10 Diphtheria,Pertussis(Acell),Tetanus Vaccine 0.5 Ml Syringe IM 02/22/21 23:52 Not Given .ONCE ONE Departure - Departure Time of Disposition: 00:50 Disposition: Home, Self-Care 01 Condition: Good Clinical Impression: Subungual hematoma, Open fracture of tuft of distal phalanx of finger - Discharge Information Referrals: Corey Villeda MD [Primary Care Provider] - Chandler Meeks MD [Ordering Only Provider] - Additional Instructions: If there are any signs of infection like red streaking up the finger or fever you should return. Follow-up with Dr. Meeks in [place] or your doctor locally if there are no complications. Dr. Meeks is a hand surgeon. [facility] [place] [phone] [facility] - Primary Care [address] [place] [id number] [place] [address] The following information is given to patients seen in the emergency department who are being discharged to home. This information is to outline your options for follow-up care. We provide all patients seen in our emergency department with a follow-up referral. The need for follow-up, as well as the timing and circumstances, are variable depending upon the specifics of your emergency department visit. If you don't have a primary care physician on staff, we will provide you with a referral. We always advise you to contact your personal physician following an emergency department visit to inform them of the circumstance of the visit and for follow-up with them and/or the need for any referrals to a consulting specialist. The emergency department will also refer you to a specialist when appropriate. This referral assures that you have the opportunity for follow-up care with a specialist. All of these measure are taken in an effort to provide you with optimal care, which includes your follow-up. Under all circumstances we always encourage you to contact your private physician who remains a resource for coordinating your care. When calling for follow-up care, please make the office aware that this follow-up is from your recent emergency room visit. If for any reason you are refused follow-up, please contact the [facility] Emergency Department at and asked to speak to the emergency department charge nurse. Sepsis Event Note (ED) - Evaluation Sepsis Screening Result: No Definite Risk - Focused Exam Vital Signs: Vital Signs Temp Pulse Resp BP Pulse Ox 02/22/21 23:42 36.2 C 55 L 17 121/64 97 - My Orders Last 24 Hours: My Active Orders 02/22/21 23:51 Vaccines to be Administered [RC] PER UNIT ROUTINE Hand Comp Min 3V Lt [CR] Stat - Assessment/Plan Last 24 Hours: My Active Orders 02/22/21 23:51 Vaccines to be Administered [RC] PER UNIT ROUTINE Hand Comp Min 3V Lt [CR] Stat
--- NOTE | 2021-02-23 00:43 | CR ---
For Patients: As a result of the Cures Act, medical imaging exams and procedure reports are released immediately into your electronic medical record. You may view this report before your referring provider. If you have questions, please contact your health care provider. Indication: Smashed finger Technique: Three views of left hand Comparison: None Findings/Impression: Comminuted fracture of the 4th distal phalangeal tuft, consistent with crush injury. No additional fracture identified. No evidence of joint dislocation. Dictated by Kallie Alicea MD @ 02/23/2021 12:42:[address] Kallie Alicea @ Feb 23 2021 12:42AM
== END 2021-02-23 00:48 | disposition home or self-care (01) ==
LOC: MW.ED 23:35
DX: S62.631B Displaced fracture of distal phalanx of left index finger, initial encounter for open fracture (principal); W22.8XXA Striking against or struck by other objects, initial encounter
CPT/HCPCS: 73130; 99283; A9270

== ENCOUNTER 2021-04-24 16:46 | Emergency (ER) | payer OTHER, MEDICARE ==
[2021-04-24] MEDS ORDERED: fentaNYL 50 MCG/ML SDV IVPUSH ONE (17:19)
[2021-04-24] MEDS ORDERED: Sodium Chloride 0.9% 10 ML Syringe FLUSH PRN (17:19)
[2021-04-24] MEDS ORDERED: Sodium Chloride 0.9% 2.5 ML Syringe FLUSH PRN (17:19)
[2021-04-24] MEDS ORDERED: Sodium Chloride 0.9% 1,000 ML IV ONE (17:20)
--- NOTE | 2021-04-24 17:22 | EDM.PDOC ---
<Edison Garcia - Last Filed: 04/24/21 18:54> ED HPI GENERAL MEDICAL PROBLEM - General Chief Complaint: Abdominal Pain Stated Complaint: LT SIDE PAIN Time Seen by Provider: 04/24/21 17:37 - History of Present Illness INITIAL COMMENTS - FREE TEXT/NARRATIVE: History of present illness: [] The patient has pain in the left lower quadrant for 2 weeks. Is fairly severe. Nothing makes it better or worse. His appetite is okay. He is not vomiting. He does not have diarrhea or constipation. His urine flow is normal. He does feel like there is a mass in the left lower quadrant in the site where the pain is. The patient is never had the pain before. He is never had any surgery on this area. He has never had a hernia any kind. The patient does not vomit any blood passing blood or passing blood in his urine. The patient has never had a colonoscopy but does Cologuard home test. He has a grandmother had colon cancer but no other family history of it. Review of systems: As per history of present illness and below otherwise all systems reviewed and negative. Past medical history: As per history of present illness and as reviewed below otherwise noncontributory. Surgical history: As per history of present illness and as reviewed below otherwise noncontributory. Social history: No reported history of drug or alcohol abuse. Family history: As per history of present illness and as reviewed below otherwise noncontributory. Physical exam: Constitutional - well developed, well-nourished and in no acute distress HEENT - normocephalic, no evidence of trauma - external nose and mouth normal - no mass in neck and no JVD - mucosae moist EYES - full EOM, PERRL, no icterus - no evidence of inflammation, injection, or drainage Respiratory - no respiratory distress, equal bilateral expansion, lungs clear to auscultation and no abnormal lung sounds Cardiovascular - Regular Rhythm with S1 and S2 appreciated and no murmur, gallop or rub. GI - abdomen soft without distension or organomegaly - normal bowel sounds - no guard or rebound. Tender left lower quadrant. There is referred tenderness to the left lower quadrant with palpation on the right. No mass appreciated. Musculoskeletal no gross deformity of long bones or joints - no tenderness, swelling or edema Neurologic - Alert and oriented times four - CN II-XII grossly intact - motor sensory and coordination symmetrically normal Psychiatric - appropriate mood and affect with normal thought content Hematologic - No petechiae or purpura - mucosa appropriate color and sclera not pale - normal nail bed color and refill Integument - no rash or evidence of trauma - normal turgor Diagnostics: [] Therapeutics: [] Impression: [] Plan: [] Definitive disposition and diagnosis as appropriate pending reevaluation and review of above. LLQ Pain Score (Numeric/FACES): 5 - Related Data Allergies Allergy/AdvReac Type Severity Reaction Status Date / Time No Known Allergies Allergy Verified 04/24/21 17:37 Home Meds: Home Meds Acetaminophen/HYDROcodone [HYDROcodone-Acetaminophen 5-525 MG *] 1 tab PO Q6H P RN #10 each 04/24/21 [Rx] Empagliflozin [Jardiance] 10 mg PO DAILY 04/24/21 [History] Hydrocodone/Acetaminophen [HYDROcodone-Acetaminophen 5-325 MG] 1 each PO Q6H #10 tab 04/24/21 [Rx] Metoprolol Succinate [Toprol XL] 1.5 tab PO DAILY 04/24/21 [History] Naloxone HCl [Narcan] 4 mg NS ONETIME #1 spray 04/24/21 [Rx] atorvaSTATin [Lipitor] 80 mg PO BEDTIME 04/24/21 [History] gemfibroziL [Gemfibrozil] 300 mg PO BID 04/24/21 [History] traZODone 50 mg PO BEDTIME 04/24/21 [History] Past Medical History HEENT History: Reports: None Respiratory History: Reports: None Gastrointestinal History: Reports: None Genitourinary History: Reports: None Musculoskeletal History: Reports: None Neurological History: Reports: None Psychiatric History: Reports: None Endocrine/Metabolic History: Reports: None Dermatologic History: Reports: None - Infectious Disease History Infectious Disease History: Reports: Measles - Past Surgical History Cardiovascular Surgical History: Reports: Other (See Below) Other Cardiovascular Surgeries/Procedures: Patient states he had "open heart surgery" in April of 2018. GI Surgical History: Reports: Cholecystectomy Musculoskeletal Surgical History: Reports: Shoulder Surgery Social & Family History - Family History Family Medical History: No Pertinent Family History - Caffeine Use Caffeine Use: Reports: Coffee Departure - Departure Disposition: Home, Self-Care 01 Condition: Good Clinical Impression: Abdominal pain, Epiploic appendagitis - Discharge Information Prescriptions: Hydrocodone/Acetaminophen [HYDROcodone-Acetaminophen 5-325 MG] 1 each PO Q6H #10 tab Acetaminophen/HYDROcodone [HYDROcodone-Acetaminophen 5-525 MG *] 1 tab PO Q6H PRN #10 each PRN Reason: Abdominal Pain Naloxone HCl [Narcan] 4 mg NS ONETIME #1 spray Instructions: Abdominal Pain, Adult, [id number] Referrals: Corey Villeda MD [Primary Care Provider] - Forms: ED Department Discharge Additional Instructions: Your imaging today showed some inflamed fat along your colon. We did recommend NSAIDs however given your history this is contraindicated. Therefore I recommend use Tylenol and [place] for pain relief. As discussed this may take some time to improve. If your pain is persistent in approximately 2 weeks I would like you to follow-up with general surgery. If your pain worsens, you start having fever, start having blood in your stool I had like you to return to the emergency department. Pain Medication Schedule: 8am (1000mg Tylenol) 2pm (1000mg Tylenol) 8pm (500mg Tylenol & 1 Tablet of [place]) 2am (500mg Tylenol & 1 Tablet of [place]) Use a stool softener and plenty of liquids to try to clean up and make sure your bowels work regularly to avoid pain that might be caused by constipation. You should have a colonoscopy especially in view of your family history. In [place] the surgeons do her colonoscopy. [facility] - General Surgery Professional Building [address] [place] [address], [address] [place] [address] [facility] - Primary Care [address] [place] [id number] [id number] The following information is given to patients seen in the emergency department who are being discharged to home. This information is to outline your options for follow-up care. We provide all patients seen in our emergency department with a follow-up referral. The need for follow-up, as well as the timing and circumstances, are variable depending upon the specifics of your emergency department visit. If you don't have a primary care physician on staff, we will provide you with a referral. We always advise you to contact your personal physician following an emergency department visit to inform them of the circumstance of the visit and for follow-up with them and/or the need for any referrals to a consulting specialist. The emergency department will also refer you to a specialist when appropriate. This referral assures that you have the opportunity for follow-up care with a specialist. All of these measure are taken in an effort to provide you with optimal care, which includes your follow-up. Under all circumstances we always encourage you to contact your private physician who remains a resource for coordinating your care. When calling for follow-up care, please make the office aware that this follow-up is from your recent emergency room visit. If for any reason you are refused follow-up, please contact the [facility] Emergency Department at and asked to speak to the emergency department charge nurse. <Andrew Prasad - Last Filed: 04/25/21 06:23> ED HPI GENERAL MEDICAL PROBLEM - History of Present Illness INITIAL COMMENTS - FREE TEXT/NARRATIVE: Patient was signed out to me by Dr. Garcia pending CT at 7PM I did reevaluate the patient and patient continues to remain stable. The patient did have pain in the left lower quadrant however without any rebound or guarding. Vitals remained normal. The radiological images were viewed by myself along with reading the report from the radiologist. CT abdomen pelvis reveals intraperitoneal focal fat infarction anterior to the distal descending colon. No evidence of diverticulitis with a small fat- containing umbilical and left inguinal hernia. There is hepatic steatosis. After imaging I did contact general surgeon Dr. Berumen who recommended NSAIDs for pain control and follow-up general surgery clinic if it did not improve. I did discuss results with the patient. At this time I did discuss that given he is not able to take NSAIDs he should use Tylenol and [place] for pain relief. He is to return for any new or worsening symptoms. He was amenable to discharge at this time and had no further questions. DISPOSITION: The patient was discharged home in stable condition. The patient will follow up with general surgery as needed CONDITION: Fair PROCEDURES: None FINAL IMPRESSION(S)/DIAGNOSES: 1. Acute abdominal pain secondary to epiploic appendagitis Andrew Prasad M.D. ED ROS GENERAL - Review of Systems Review Of Systems: See Below ED EXAM, GENERAL - Physical Exam Exam: See Below Course - Vital Signs Last Recorded V/S: Last Vital Signs Temp 36.1 C 04/24/21 19:48 Pulse 66 04/24/21 19:48 Resp 16 04/24/21 19:48 BP 141/85 H 04/24/21 19:48 Pulse Ox 94 L 04/24/21 19:48 - Orders/Labs/Meds Orders: Active Orders 24 hr Category Date Time Status Saline Lock Insert [OM.PC] Stat Oth 04/24/21 17:19 Ordered Labs: Laboratory Tests 04/24/21 04/24/21 04/24/21 Range/Units 17:40 17:40 19:00 WBC 7.56 (4.0-11.0) K/uL RBC 5.11 (4.50-5.90) M/uL Hgb 15.2 (13.0-17.0) g/dL Hct 45.2 (38.0-50.0) % MCV 88.5 (80.0-98.0) fL MCH 29.7 (27.0-32.0) pg MCHC 33.6 (31.0-37.0) g/dL RDW Std Deviation 42.1 (28.0-62.0) fl RDW Coeff of [place] 13 (11.0-15.0) % Plt Count 166 (150-400) K/uL MPV 11.50 (7.40-12.00) fL Neut % (Auto) 62.0 (48.0-80.0) % Lymph % (Auto) 25.3 (16.0-40.0) % [place] % (Auto) 11.0 (0.0-15.0) % Eos % (Auto) 1.3 (0.0-7.0) % Baso % (Auto) 0.4 (0.0-1.5) % Neut # (Auto) 4.7 (1.4-5.7) K/uL Lymph # (Auto) 1.9 (0.6-2.4) K/uL [place] # (Auto) 0.8 (0.0-0.8) K/uL Eos # (Auto) 0.1 (0.0-0.7) K/uL Baso # (Auto) 0.0 (0.0-0.1) K/uL Nucleated RBC % 0.0 /100WBC Nucleated RBCs # 0 K/uL Sodium 139 (136-148) mmol/L Potassium 3.8 (3.5-5.1) mmol/L Chloride 106 (98-107) mmol/L Carbon Dioxide 25.6 (21.0-32.0) mmol/L BUN 23 H (7.0-18.0) mg/dL Creatinine 1.0 (0.8-1.3) mg/dL Est Cr Clr Drug Dosing 76.04 mL/min Estimated GFR (MDRD) > 60.0 ml/min Glucose 97 (74-106) mg/dL Calcium 8.5 (8.5-10.1) mg/dL Total Bilirubin 0.4 (0.2-1.0) mg/dL AST 18 (15-37) IU/L ALT 34 (14-63) IU/L Alkaline Phosphatase 66 (46-116) U/L Total Protein 6.6 (6.4-8.2) g/dL Albumin 3.6 (3.4-5.0) g/dL Globulin 3.0 (2.6-4.0) g/dL Albumin/Globulin Ratio 1.2 (0.9-1.6) Lipase 81 (73-393) U/L Urine Color YELLOW Urine Appearance CLEAR Urine pH 6.0 (5.0-8.0) Ur Specific [place] 1.015 (1.001-1.035) Urine Protein NEGATIVE (NEGATIVE) mg/dL Urine Glucose (UA) >=1000 (NEGATIVE) mg/dL Urine Ketones NEGATIVE (NEGATIVE) mg/dL Urine Occult Blood NEGATIVE (NEGATIVE) Urine Nitrite NEGATIVE (NEGATIVE) Urine Bilirubin NEGATIVE (NEGATIVE) Urine Urobilinogen 0.2 (<2.0) EU/dL Ur Leukocyte Esterase NEGATIVE (NEGATIVE) Meds: Medications Discontinued Medications Generic Name Dose Route Start Last Admin Trade Name Freq PRN Reason Stop Dose Admin Acetaminophen 1,000 mg 04/24/21 19:29 04/24/21 19:46 Acetaminophen 500 Mg Tab PO 04/24/21 19:30 1,000 mg ONETIME ONE Administration Fentanyl 50 mcg 04/24/21 17:19 04/24/21 19:46 Fentanyl 50 Mcg/Ml Sdv IVPUSH 04/24/21 17:20 Not Given ONETIME ONE Sodium Chloride 1,000 mls @ 1,000 mls/hr 04/24/21 17:20 04/24/21 18:15 Normal Saline IV 04/24/21 18:19 1,000 mls/hr .Bolus ONE Administration Iopamidol 100 ml 04/24/21 18:31 04/24/21 18:31 Iopamidol 755 Mg/Ml 500 Ml Multipack Bottle IVPUSH 04/24/21 18:32 100 ml ONETIME ONE Administration Sodium Chloride 10 ml 04/24/21 17:19 Sodium Chloride 0.9% 10 Ml Syringe FLUSH ASDIRECTED PRN Keep Vein Open Sodium Chloride 2.5 ml 04/24/21 17:19 Sodium Chloride 0.9% 2.5 Ml Syringe FLUSH ASDIRECTED PRN Keep Vein Open Departure - Departure Time of Disposition: 20:17 - Discharge Information *PRESCRIPTION DRUG MONITORING PROGRAM REVIEWED*: No *COPY OF PRESCRIPTION DRUG MONITORING REPORT IN PATIENT ASHLEY: No Sepsis Event Note (ED) - Focused Exam Vital Signs: Vital Signs Temp Pulse Resp BP Pulse Ox 04/24/21 19:48 36.1 C 66 16 141/85 H 94 L 04/24/21 19:18 36.1 C 64 16 144/86 H 98
[2021-04-24 18:05] LABS: BLOOD UREA NITROGEN,BUN 23 mg/dL (7.0-18.0); CARBON DIOXIDE,CO2 25.6 mmol/L (21.0-32.0); CHLORIDE,CL 106 mmol/L (98-107); GLUCOSE RANDOM 97 mg/dL (74-106); LIPASE 81 U/L (73-393); POTASSIUM,K 3.8 mmol/L (3.5-5.1); SODIUM,NA 139 mmol/L (136-148)
[2021-04-24] MEDS ORDERED: Iopamidol 755 MG/ML 500 ML Multipack Bottle IVPUSH ONE (18:31)
[2021-04-24] MEDS ORDERED: Acetaminophen 500 MG Tab PO ONE (19:29)
--- NOTE | 2021-04-24 19:32 | CT ---
INDICATION: Left lower quadrant pain with palpable mass TECHNIQUE: CT abdomen and pelvis acquired with 100 cc Isovue 370 IV contrast. COMPARISON: None FINDINGS: Lower chest: Status post median sternotomy. Liver: Hepatic steatosis. Spleen: Unremarkable. Pancreas: Unremarkable. Gallbladder and bile ducts: S/p cholecystectomy. Adrenal glands: Unremarkable. Kidneys: Simple cyst on the right kidney. GI tract: There is a 1.8 x 2.9 x 3.6 cm focal area of fat density with a thin enhancing rim. Central area of hyperdensity within the fat density. Anterior to the distal portion of the descending colon. There is no colonic wall thickening. No extraluminal air or abscess. No diverticulitis. Appendix is normal. Vascular structures: Unremarkable. Lymph nodes: Unremarkable. Miscellaneous: Small fat containing umbilical hernia. Small fat containing left inguinal hernia. No free air or significant free fluid. Pelvic Organs: Unremarkable. Bones: Unremarkable for age. IMPRESSION: Intraperitoneal focal fat infarction anterior to the distal descending colon. Small fat containing umbilical and left inguinal hernias. Hepatic steatosis. Status post cholecystectomy and median sternotomy. Please note that all CT scans at this facility use dose modulation, iterative reconstruction, and/or weight-based dosing when appropriate to reduce radiation dose to as low as reasonably achievable. Dictated by Aure Escalera MD @ 04/24/2021 7:30:[address] Aure Escalera @ Apr 24 2021 7:30PM
== END 2021-04-24 20:40 | disposition home or self-care (01) ==
LOC: MW.ED 16:46
DX: K63.89 Other specified diseases of intestine (principal); Z79.899 Other long term (current) drug therapy
CPT/HCPCS: 36415; 74177; 80053; 81003; 83690; 85025; 99284; A9270; J7030; Q9967

== ENCOUNTER 2023-02-06 09:23 | Emergency (ER) | payer OTHER, MEDICARE ==
[2023-02-06] MEDS ORDERED: Sodium Chloride 0.9% 1,000 ML IV ONE (10:02)
[2023-02-06] MEDS ORDERED: Ondansetron 4 MG/2 ML SDV IVPUSH ONE (10:03)
[2023-02-06] MEDS ORDERED: Morphine 4 MG/ML Syringe IVPUSH ONE (10:03)
[2023-02-06 10:09] LABS: BASOPHILS PERCENT AUTO 0.2 % (0.0-1.5); EOSINOPHILS PERCENT AUTO 0.4 % (0.0-7.0); HEMATOCRIT 48.3 % (38.0-50.0); HEMOGLOBIN 16.4 g/dL (13.0-17.0); LYMPHOCYTES ABSOLUTE AUTO 0.6 K/uL (0.6-2.4); LYMPHOCYTES PERCENT AUTO 11.9 % (16.0-40.0); MEAN CORPUSCULAR HEMOGLOBIN 29.7 pg (27.0-32.0); MEAN CORPUSCULAR VOLUME 87.3 fL (80.0-98.0); MONOCYTES ABSOLUTE AUTO 0.4 K/uL (0.0-0.8); MONOCYTES PERCENT AUTO 8.3 % (0.0-15.0); NEUTROPHILS PERCENT AUTO 79.2 % (48.0-80.0); NRBC ABSOLUTE 0 K/uL; PLATELET COUNT,PLT 147 K/uL (150-400); RED BLOOD CELL COUNT 5.53 M/uL (4.50-5.90); WHITE BLOOD CELL COUNT,WBC 5.03 K/uL (4.0-11.0)
[2023-02-06 10:32] LABS: ALBUMIN 3.4 g/dL (3.4-5.0); BILIRUBIN TOTAL 0.7 mg/dL (0.2-1.0); CALCIUM 8.5 mg/dL (8.5-10.1); CARBON DIOXIDE,CO2 23.6 mmol/L (21.0-32.0); CREATININE 1.2 mg/dL (0.8-1.3); EST CRCL DRUG DOSING (CG) 61.68 mL/min; POTASSIUM,K 3.6 mmol/L (3.5-5.1); PROTEIN TOTAL,TP 6.9 g/dL (6.4-8.2)
[2023-02-06 11:10] LABS: APPEARANCE,URINE CLEAR; BILIRUBIN,URINE NEGATIVE (NEGATIVE); COLOR,URINE YELLOW; GLUCOSE,URINE >=1000 mg/dL (NEGATIVE); KETONES,URINE NEGATIVE (NEGATIVE); LEUKOCYTE ESTERASE,URINE NEGATIVE (NEGATIVE); NITRITE,URINE NEGATIVE (NEGATIVE); OCCULT BLOOD,URINE NEGATIVE (NEGATIVE); PROTEIN,URINE NEGATIVE (NEGATIVE); UROBILINOGEN,URINE 0.2 EU/dL (<2.0)
[2023-02-06] MEDS ORDERED: Aluminum Hydroxide/Magnesium Hydroxide/Simethicone XS Susp 30 ML Cup PO ONE (11:36)
== END 2023-02-06 13:00 | disposition home or self-care (01) ==
LOC: MW.ED 09:23
DX: K42.9 Umbilical hernia without obstruction or gangrene (principal); I10 Essential (primary) hypertension; E11.9 Type 2 diabetes mellitus without complications; Z79.899 Other long term (current) drug therapy; Z90.49 Acquired absence of other specified parts of digestive tract
CPT/HCPCS: 36415; 74176; 80053; 81003; 83690; 85025; 96361; 96374; 96375; 99284; J2270; J2405; J7030

== ENCOUNTER 2023-06-20 06:34 | Day surgery (SDC) | payer OTHER, MEDICARE ==
[~2023-06-20 06:34] MED LIST: Sodium Chloride 0.9% 10 ML Syringe FLUSH PRN; Sodium Chloride 0.9% 2.5 ML Syringe FLUSH PRN; Sodium Chloride 0.9% 20 ML SDV IV PRN; ceFAZolin 2 GM in Sodium Chloride 0.9% 50 ML IV ONE
[2023-06-20] MEDS ORDERED: Lactated Ringers 1,000 ML IV SCH (07:15)
[2023-06-20] MEDS ORDERED: Bupivacaine 0.5% 30 ML SDV ONE ×2 (07:22→07:24)
[2023-06-20] MEDS ORDERED: Ropivacaine 0.5% 5 MG/ML 30 ML SDV ONE (07:23)
[2023-06-20] MEDS ORDERED: Famotidine 20 MG/2 ML SDV ONE (07:23)
[2023-06-20] MEDS ORDERED: fentaNYL 250 MCG/5 ML SDV ONE (07:25)
[2023-06-20] MEDS ORDERED: Rocuronium Bromide 50 MG/5 ML Syringe ONE ×2 (07:25→08:36)
[2023-06-20] MEDS ORDERED: Morphine 10 MG/ML SDV ONE (07:25)
[2023-06-20] MEDS ORDERED: Propofol 200 MG/20 ML SDV ONE (07:25)
[2023-06-20] MEDS ORDERED: Ondansetron 4 MG/2 ML SDV IVPUSH PRN (07:30)
[2023-06-20] MEDS ORDERED: fentaNYL 50 MCG/ML SDV IVPUSH PRN (07:30)
[2023-06-20] MEDS ORDERED: Naloxone 0.4 MG/ML SDV IVPUSH PRN (07:30)
[2023-06-20] MEDS ORDERED: HYDROmorphone 1 MG/ML Syringe IVPUSH PRN (07:30)
[2023-06-20] MEDS ORDERED: Morphine 2 MG/ML SYRINGE IVPUSH PRN (07:30)
[2023-06-20] MEDS ORDERED: Albuterol 0.083% 2.5 MG/3 ML Neb Soln NEB PRN (07:30)
[2023-06-20] MEDS ORDERED: droPERidol 5 MG/2 ML SDV IVPUSH PRN (07:30)
[2023-06-20] MEDS ORDERED: Metoclopramide 10 MG/2 ML SDV IVPUSH PRN (07:30)
[2023-06-20] MEDS ORDERED: Ondansetron 4 MG/2 ML SDV ONE (08:36)
[2023-06-20] MEDS ORDERED: ePHEDrine 50 MG/ML SDV ONE (08:36)
[2023-06-20] MEDS ORDERED: Dexamethasone 4 MG/ML 5 ML MDV ONE (08:36)
[2023-06-20] MEDS ORDERED: Sugammadex Sodium 200 MG/2 ML VIAL ONE (08:36)
== END 2023-06-20 09:58 | disposition home or self-care (01) ==
LOC: MW.SDS 06:34
PROVIDERS: ATTEND Surgery
DX: K42.0 Umbilical hernia with obstruction, without gangrene (principal); K21.9 Gastro-esophageal reflux disease without esophagitis; I10 Essential (primary) hypertension; E78.00 Pure hypercholesterolemia, unspecified; E11.9 Type 2 diabetes mellitus without complications; F17.210 Nicotine dependence, cigarettes, uncomplicated; Z79.82 Long term (current) use of aspirin; Z79.899 Other long term (current) drug therapy; Z88.8 Allergy status to other drugs, medicaments and biological substances
CPT/HCPCS: 49592; 64488; 82947; J1100; J2270; J2405; J2704; J2795; J3010; J3490; J7120; C1781

== ENCOUNTER 2023-08-26 18:05 | Emergency (ER) | payer OTHER, MEDICARE ==
[2023-08-26 19:00] LABS: CORONAVIRUS COVID-19 NAA POSITIVE (NEGATIVE); INFLUENZA A NAA NEGATIVE (NEGATIVE); INFLUENZA B NAA NEGATIVE (NEGATIVE); RESPIRATORY SYNCYTIAL VIR NAA NEGATIVE (NEGATIVE)
[2023-08-26] MEDS ORDERED: Ibuprofen 600 MG Tab PO ONE (19:23)
[2023-08-26] MEDS ORDERED: Nirmatrelvir/Ritonavir 300 MG/100 MG Dose Pack PO STA (20:40)
== END 2023-08-26 20:58 | disposition home or self-care (01) ==
LOC: MW.ED 18:05
DX: U07.1 COVID-19 (principal); E11.9 Type 2 diabetes mellitus without complications; Z88.2 Allergy status to sulfonamides; Z79.84 Long term (current) use of oral hypoglycemic drugs
CPT/HCPCS: 0241U; 71045; 99283; A9270

== ENCOUNTER 2024-04-16 18:29 | Emergency (ER) | payer OTHER, MEDICARE ==
[2024-04-16] MEDS: methylPREDNISolone Sodium Succinate 125 MG/2 ML SDV IM ONE (18:52)
[2024-04-16] MEDS: Acetaminophen/oxyCODONE 325-10 MG Tab PO ONE (18:52)
[2024-04-16] MEDS: Lidocaine 4% 1 each Patch TOP STA (18:52)
== END 2024-04-16 19:30 | disposition home or self-care (01) ==
LOC: MW.ED 18:29
DX: M54.41 Lumbago with sciatica, right side (principal); E11.9 Type 2 diabetes mellitus without complications; Z75.8 Other problems related to medical facilities and other health care; Z88.8 Allergy status to other drugs, medicaments and biological substances; Z79.899 Other long term (current) drug therapy; Z90.49 Acquired absence of other specified parts of digestive tract
CPT/HCPCS: 96372; 99283; A9270; J2919

== ENCOUNTER 2024-06-02 13:13 | Emergency (ER) | payer OTHER, MEDICARE ==
[2024-06-02 13:31] LABS: APPEARANCE,URINE CLEAR; BILIRUBIN,URINE NEGATIVE (NEGATIVE); COLOR,URINE YELLOW; GLUCOSE,URINE >=1000 mg/dL (NEGATIVE); KETONES,URINE NEGATIVE (NEGATIVE); LEUKOCYTE ESTERASE,URINE NEGATIVE (NEGATIVE); NITRITE,URINE NEGATIVE (NEGATIVE); OCCULT BLOOD,URINE NEGATIVE (NEGATIVE); PROTEIN,URINE NEGATIVE (NEGATIVE); UROBILINOGEN,URINE 0.2 EU/dL (<2.0)
[2024-06-02 13:31] LABS: BASOPHILS ABSOLUTE AUTO 0.04 K/uL (0.00-0.20); BASOPHILS PERCENT AUTO 0.6 % (0.0-1.0); EOSINOPHILS ABSOLUTE AUTO 0.17 K/uL (0.00-0.45); EOSINOPHILS PERCENT AUTO 2.7 % (0.0-6.0); HEMATOCRIT 45.2 % (42.0-52.0); HEMOGLOBIN 15.2 g/dL (14.0-18.0); IMMATURE GRAN ABSOLUTE AUTO 0.01 K/uL (0.00-0.05); IMMATURE GRAN PERCENT AUTO 0.2 % (0.0-0.4); LYMPHOCYTES PERCENT AUTO 35.5 % (24.0-44.0); MEAN CORPUSCULAR HEMOGLOBIN 29.7 pg (28.0-32.0); MEAN CORPUSCULAR HGB CONC 33.6 g/dL (32.0-36.0); MEAN CORPUSCULAR VOLUME 88.3 fL (83.0-99.0); MEAN PLATELET VOLUME 10.7 fL (9.4-12.4); MONOCYTES PERCENT AUTO 11.3 % (0.0-8.0); NEUTROPHILS ABSOLUTE AUTO 3.08 K/uL (1.80-7.70); NEUTROPHILS PERCENT AUTO 49.7 % (41.0-71.0); PLATELET COUNT,PLT 191 K/uL (150-400); RED BLOOD CELL COUNT 5.12 M/uL (4.52-5.90)
[2024-06-02 13:53] LABS: A/G RATIO 1.3 (0.9-1.6); ALBUMIN 3.8 g/dL (3.4-5.0); BILIRUBIN TOTAL 0.5 mg/dL (0.2-1.0); CALCIUM 8.5 mg/dL (8.5-10.1); CARBON DIOXIDE,CO2 26.5 mmol/L (21.0-32.0); CREATININE 1.2 mg/dL (0.8-1.3); EST CRCL DRUG DOSING (CG) 60.83 mL/min; POTASSIUM,K 4.2 mmol/L (3.5-5.1); PROTEIN TOTAL,TP 6.7 g/dL (6.4-8.2)
[2024-06-02] MEDS: Lidocaine 4% 1 each Patch TOP STA (14:16)
== END 2024-06-02 16:02 | disposition home or self-care (01) ==
LOC: MW.ED 13:13
DX: R10.9 Unspecified abdominal pain (principal); E11.9 Type 2 diabetes mellitus without complications; Z75.8 Other problems related to medical facilities and other health care; Z88.8 Allergy status to other drugs, medicaments and biological substances; Z79.899 Other long term (current) drug therapy; Z90.49 Acquired absence of other specified parts of digestive tract
CPT/HCPCS: 36415; 74176; 80053; 81003; 83690; 85025; 99284; A9270; 99283

== ENCOUNTER 2024-06-27 19:44 | Inpatient (IN) | payer OTHER ==
[2024-06-27 20:25] LABS: BASOPHILS ABSOLUTE AUTO 0.03 K/uL (0.00-0.20); BASOPHILS PERCENT AUTO 0.5 % (0.0-1.0); EOSINOPHILS ABSOLUTE AUTO 0.09 K/uL (0.00-0.45); EOSINOPHILS PERCENT AUTO 1.4 % (0.0-6.0); HEMATOCRIT 39.3 % (42.0-52.0); HEMOGLOBIN 13.3 g/dL (14.0-18.0); IMMATURE GRAN ABSOLUTE AUTO 0.01 K/uL (0.00-0.05); IMMATURE GRAN PERCENT AUTO 0.2 % (0.0-0.4); LYMPHOCYTES ABSOLUTE AUTO 1.12 K/uL (1.00-4.80); LYMPHOCYTES PERCENT AUTO 17.4 % (24.0-44.0); MEAN CORPUSCULAR HEMOGLOBIN 29.3 pg (28.0-32.0); MEAN CORPUSCULAR HGB CONC 33.8 g/dL (32.0-36.0); MEAN CORPUSCULAR VOLUME 86.6 fL (83.0-99.0); MEAN PLATELET VOLUME 10.5 fL (9.4-12.4); MONOCYTES ABSOLUTE AUTO 0.43 K/uL (0.00-0.80); MONOCYTES PERCENT AUTO 6.7 % (0.0-8.0); NEUTROPHILS ABSOLUTE AUTO 4.76 K/uL (1.80-7.70); NEUTROPHILS PERCENT AUTO 73.8 % (41.0-71.0); PLATELET COUNT,PLT 178 K/uL (150-400); RED BLOOD CELL COUNT 4.54 M/uL (4.52-5.90); WHITE BLOOD CELL COUNT,WBC 6.44 K/uL (3.9-11.3)
[2024-06-27 21:01] LABS: ALBUMIN 3.1 g/dL (3.4-5.0); BILIRUBIN TOTAL 0.4 mg/dL (0.2-1.0); CALCIUM 8.9 mg/dL (8.5-10.1); CARBON DIOXIDE,CO2 28.9 mmol/L (21.0-32.0); CORONAVIRUS COVID-19 NAA NEGATIVE (NEGATIVE); INFLUENZA A NAA NEGATIVE (NEGATIVE); INFLUENZA B NAA NEGATIVE (NEGATIVE); POTASSIUM,K 3.8 mmol/L (3.5-5.1); PROTEIN TOTAL,TP 6.1 g/dL (6.4-8.2)
[2024-06-27] MEDS: Morphine 4 MG/ML Syringe IVPUSH STA ×2 (21:22→23:15)
[2024-06-27] MEDS: Albuterol/Ipratropium 3.0-0.5 MG/3 ML Neb Soln NEB STA (21:22)
[2024-06-27] MEDS: Sodium Chloride 0.9% 10 ML Syringe FLUSH PRN (21:22)
[2024-06-27] MEDS: Ondansetron 4 MG/2 ML SDV IVPUSH STA (21:22)
[2024-06-27] MEDS: Sodium Chloride 0.9% 2.5 ML Syringe FLUSH PRN (21:22)
[2024-06-27] MEDS: Iopamidol 755 MG/ML 500 ML Multipack Bottle IVPUSH ONE (21:37)
[2024-06-28] MEDS ORDERED: 50% Dextrose in Water 50 ML Syringe IVPUSH PRN (01:34)
[2024-06-28] MEDS ORDERED: Glucagon,Human Recombinant 1 MG Vial IM PRN (01:34)
[2024-06-28] MEDS ORDERED: Acetaminophen 325 MG Tab PO PRN (01:36)
[2024-06-28] MEDS ORDERED: Albuterol/Ipratropium 3.0-0.5 MG/3 ML Neb Soln NEB PRN (01:37)
[2024-06-28] MEDS ORDERED: Ondansetron 4 MG/2 ML SDV IVPUSH PRN (01:38)
[2024-06-28] MEDS: traZODone 50 MG Tab PO SCH (02:24)
[2024-06-28] MEDS: Zolpidem 5 MG Tab PO SCH (02:25)
[2024-06-28 05:39] LABS: BASOPHILS ABSOLUTE AUTO 0.04 K/uL (0.00-0.20); BASOPHILS PERCENT AUTO 0.6 % (0.0-1.0); EOSINOPHILS ABSOLUTE AUTO 0.18 K/uL (0.00-0.45); EOSINOPHILS PERCENT AUTO 2.7 % (0.0-6.0); HEMATOCRIT 39.1 % (42.0-52.0); HEMOGLOBIN 13.3 g/dL (14.0-18.0); IMMATURE GRAN ABSOLUTE AUTO 0.03 K/uL (0.00-0.05); IMMATURE GRAN PERCENT AUTO 0.4 % (0.0-0.4); LYMPHOCYTES ABSOLUTE AUTO 1.23 K/uL (1.00-4.80); LYMPHOCYTES PERCENT AUTO 18.3 % (24.0-44.0); MEAN CORPUSCULAR HEMOGLOBIN 29.5 pg (28.0-32.0); MEAN CORPUSCULAR VOLUME 86.7 fL (83.0-99.0); MEAN PLATELET VOLUME 10.3 fL (9.4-12.4); MONOCYTES ABSOLUTE AUTO 0.68 K/uL (0.00-0.80); MONOCYTES PERCENT AUTO 10.1 % (0.0-8.0); NEUTROPHILS ABSOLUTE AUTO 4.55 K/uL (1.80-7.70); NEUTROPHILS PERCENT AUTO 67.9 % (41.0-71.0); PLATELET COUNT,PLT 177 K/uL (150-400); RED BLOOD CELL COUNT 4.51 M/uL (4.52-5.90); WHITE BLOOD CELL COUNT,WBC 6.71 K/uL (3.9-11.3)
[2024-06-28] MEDS: Cyclobenzaprine 10 MG Tab PO SCH (05:56)
[2024-06-28 06:10] LABS: CALCIUM 9.3 mg/dL (8.5-10.1); CARBON DIOXIDE,CO2 28.8 mmol/L (21.0-32.0); CREATININE 0.9 mg/dL (0.8-1.3); EST CRCL DRUG DOSING (CG) 81.11 mL/min; POTASSIUM,K 3.9 mmol/L (3.5-5.1)
[2024-06-28] MEDS: Insulin Aspart 100 Units/ML 3 ML Pen SUBCUT SCH (06:37)
[2024-06-28] MEDS: oxyCODONE 5 MG Tab PO PRN (08:19)
[2024-06-28] MEDS: Sennosides 8.6 MG Tab PO PRN (11:11)
[2024-06-28] MEDS: cefTRIAXone 1 GM in Sodium Chloride 0.9% 50 ML IV SCH (16:54)
[2024-06-28] MEDS: Azithromycin 500 MG in Sodium Chloride 0.9% 250 ML IV SCH (17:34)
[2024-06-28] MEDS: Metoprolol Tartrate 25 MG Tab PO SCH (20:34)
[2024-06-28] MEDS: atorvaSTATin 40 MG Tab PO SCH (20:35)
[2024-06-28] MEDS: Fenofibrate,Micronized 67 MG Cap PO SCH (20:35)
[2024-06-28] MEDS ORDERED: Zolpidem 5 MG Tab PO SCH (21:00)
[2024-06-28] MEDS ORDERED: traZODone 50 MG Tab PO SCH (21:00)
[2024-06-28] MEDS ORDERED: GEMFIBROZIL 600 MG PO SCH (21:00)
[2024-06-29 05:35] LABS: BASOPHILS ABSOLUTE AUTO 0.05 K/uL (0.00-0.20); BASOPHILS PERCENT AUTO 0.8 % (0.0-1.0); EOSINOPHILS PERCENT AUTO 3.3 % (0.0-6.0); HEMATOCRIT 39.4 % (42.0-52.0); HEMOGLOBIN 12.8 g/dL (14.0-18.0); IMMATURE GRAN ABSOLUTE AUTO 0.02 K/uL (0.00-0.05); IMMATURE GRAN PERCENT AUTO 0.3 % (0.0-0.4); LYMPHOCYTES ABSOLUTE AUTO 1.17 K/uL (1.00-4.80); LYMPHOCYTES PERCENT AUTO 19.3 % (24.0-44.0); MEAN CORPUSCULAR HEMOGLOBIN 28.9 pg (28.0-32.0); MEAN CORPUSCULAR HGB CONC 32.5 g/dL (32.0-36.0); MEAN CORPUSCULAR VOLUME 88.9 fL (83.0-99.0); MEAN PLATELET VOLUME 10.1 fL (9.4-12.4); MONOCYTES PERCENT AUTO 11.6 % (0.0-8.0); NEUTROPHILS ABSOLUTE AUTO 3.92 K/uL (1.80-7.70); NEUTROPHILS PERCENT AUTO 64.7 % (41.0-71.0); PLATELET COUNT,PLT 198 K/uL (150-400); RED BLOOD CELL COUNT 4.43 M/uL (4.52-5.90); WHITE BLOOD CELL COUNT,WBC 6.06 K/uL (3.9-11.3)
[2024-06-29 06:06] LABS: A/G RATIO 0.7 (0.9-1.6); ALBUMIN 2.7 g/dL (3.4-5.0); BILIRUBIN TOTAL 0.6 mg/dL (0.2-1.0); CALCIUM 9.2 mg/dL (8.5-10.1); CARBON DIOXIDE,CO2 31.9 mmol/L (21.0-32.0); POTASSIUM,K 4.2 mmol/L (3.5-5.1); PROTEIN TOTAL,TP 6.5 g/dL (6.4-8.2)
== END 2024-06-29 12:27 | disposition home or self-care (01) | DRG 194 ==
LOC: MW.ED 19:44 → MW.MS 22:59 → OBSVTOIN 06-28 15:50
PROVIDERS: ADMIT Internal Medicine; ATTEND Internal Medicine
DX: J18.9 Pneumonia, unspecified organism (principal); I42.9 Cardiomyopathy, unspecified; J98.11 Atelectasis; I10 Essential (primary) hypertension; E78.5 Hyperlipidemia, unspecified; E11.9 Type 2 diabetes mellitus without complications; Z88.8 Allergy status to other drugs, medicaments and biological substances; Z97.3 Presence of spectacles and contact lenses; Z90.49 Acquired absence of other specified parts of digestive tract; Z99.81 Dependence on supplemental oxygen; Z87.891 Personal history of nicotine dependence; Z79.899 Other long term (current) drug therapy; Z98.890 Other specified postprocedural states
CPT/HCPCS: 0240U; 36415; 71275; 71275-26; 80048; 80053; 82947; 84484; 85025; 93005; 93010; 94667; 96374; 96375; 96376; 99285; 99285-25; A9270-GY; G0378; J0456; J0696; J2270; J2405; J3490; J7050; J7620-GY; Q9967

== ENCOUNTER 2024-08-18 09:26 | Emergency (ER) | payer OTHER | END 2024-08-18 12:24 | disposition home or self-care (01) | LOC: MW.ED 09:26 | DX: M25.552 Pain in left hip (principal); I10 Essential (primary) hypertension; E11.9 Type 2 diabetes mellitus without complications; Z90.49 Acquired absence of other specified parts of digestive tract; Z79.899 Other long term (current) drug therapy; Z88.8 Allergy status to other drugs, medicaments and biological substances; Z75.8 Other problems related to medical facilities and other health care; X50.0XXA Overexertion from strenuous movement or load, initial encounter | CPT/HCPCS: 73502-26-LT; 73502-LT; 99283 ==

== ENCOUNTER 2024-09-17 07:08 | Day surgery (SDC) | payer OTHER ==
[~2024-09-17 07:08] MED LIST changes: -ceFAZolin 2 GM in Sodium Chloride 0.9% 50 ML IV ONE
[2024-09-17] MEDS: Lactated Ringers 1,000 ML IV SCH (07:25)
[2024-09-17] MEDS ORDERED: ceFAZolin 2 GM Vial ONE (07:57)
[2024-09-17] MEDS ORDERED: Sodium Chloride 0.9% 20 ML ONE (07:57)
[2024-09-17] MEDS ORDERED: propofoL 500 MG/50 ML 50 ML ONE (08:43)
== END 2024-09-17 10:25 | disposition home or self-care (01) ==
LOC: MW.SDS 07:08
PROVIDERS: ATTEND Surgery
DX: Z12.11 Encounter for screening for malignant neoplasm of colon (principal); R19.5 Other fecal abnormalities; I10 Essential (primary) hypertension; E11.9 Type 2 diabetes mellitus without complications; E78.2 Mixed hyperlipidemia; K21.9 Gastro-esophageal reflux disease without esophagitis; Z87.891 Personal history of nicotine dependence; Z79.82 Long term (current) use of aspirin; Z79.84 Long term (current) use of oral hypoglycemic drugs; Z79.899 Other long term (current) drug therapy
CPT/HCPCS: 45378; J0690; J2704; J7120; 00811; J3490